=== PATIENT | female | born 1950 | race Caucasian/White ===

== ENCOUNTER 2019-07-20 13:34 | Outpatient (CLI) | payer OTHER ==
[~2019-07-20] VITALS: Ht 177.8 cm; Wt 99.8 kg
[~2019-07-20 13:34] MED LIST: PERCOCET 325 MG1 TAB PO; RELPAX40 MG PO; RESTORIL30 MG PO; TREXIMET PO
[2019-07-20 14:00] VITALS: BP 103/68; PULSE 62
[2019-07-20] MEDS ORDERED: SEROQUEL50 MG PO (14:40)
[2019-07-20] MEDS ORDERED: ZESTRIL 10MG10 MG PO (14:41)
[2019-07-20] MEDS ORDERED: TOPROL XL 50MG50 MG PO (14:41)
[2019-07-20] MEDS ORDERED: RELPAX 40MG TAB40 MG PO (14:41)
[2019-07-20] MEDS ORDERED: RESTORIL 1515 MG/CAP PO (14:42)
[2019-07-20] MEDS ORDERED: PROTONIX 40MG T40 MG PO (14:42)
[2019-07-20] MEDS ORDERED: MIRAPEX0.5 MG PO (14:43)
[2019-07-20] MEDS ORDERED: TESSALON P100 MG/CAP PO (14:43)
--- NOTE | 2019-07-20 14:43 | NUR ---
Pt discharged via EMS
[2019-07-20] MEDS ORDERED: IMITREX50 MG PO (14:44)
[2019-07-20] MEDS ORDERED: HCTZ 25MG TAB25 MG PO (14:45)
== END 2019-07-20 15:24 | disposition home or self-care (01) ==
LOC: EUO 13:34
DX: Z45.2 Encounter for adjustment and management of vascular access device (principal); K57.92 Diverticulitis of intestine, part unspecified, without perforation or abscess without bleeding
CPT/HCPCS: C1751